=== PATIENT | female | born 1975 | race Two or more races ===

== ENCOUNTER 2022-10-16 17:39 | Emergency (ER) | payer MEDICAID ==
[~2022-10-16] VITALS: Ht 157.5 cm; Wt 110.5 kg
[2022-10-16] MEDS ORDERED: KETOROLAC TROMETHAMINE 30 MG/ML VIAL IM ONE (18:45)
[2022-10-16 22:17] VITALS: BP 135/76; PULSE 74; RESP 16; TEMP 97.3
== END 2022-10-16 22:17 | disposition home or self-care (01) ==
LOC: EMS 17:41
DX: M25.561 Pain in right knee (principal); I10 Essential (primary) hypertension
CPT/HCPCS: 99283; 29505; 73564; 96372; J1885; 29530

== ENCOUNTER 2024-07-07 14:37 | Emergency (ER) | payer MEDICAID ==
[~2024-07-07] VITALS: Ht 157.5 cm; Wt 117.3 kg
[2024-07-07] MEDS ORDERED: BRIV100T PO (14:50)
[2024-07-07] MEDS ORDERED: LACO50TA6 PO (14:50)
[2024-07-07] MEDS ORDERED: LACO200T4 PO (14:50)
[2024-07-07] MEDS ORDERED: LAMO200T32 PO (14:50)
[2024-07-07] MEDS ORDERED: LISI-663 PO (14:51)
[2024-07-07] MEDS ORDERED: IBUP-1493 PO (14:51)
[2024-07-07] MEDS ORDERED: SERT-158 PO (14:51)
[2024-07-07] MEDS ORDERED: LACO100T14 PO (14:51)
[2024-07-07] MEDS: lisinopriL 10 MG TABLET PO ONE (15:14)
[2024-07-07] MEDS: TraMADol HCL 50 MG TABLET PO ONE (15:14)
[2024-07-07 15:42] LABS: BASOPHILS % (AUTO) 0.8 % (0.0-2.0); EOSINOPHILS % (AUTO) 3.5 % (1.0-6.0); HEMATOCRIT 37.3 % (36-46); HEMOGLOBIN 12.4 g/dL (12.0-16.0); LYMPHOCYTES # (AUTO) 2.7 K/uL (1.0-4.8); LYMPHOCYTES % (AUTO) 31.4 % (22.0-44.0); MEAN CORPUSCULAR HEMOGLOBIN 28.3 pg (26.0-34.0); MEAN CORPUSCULAR HGB CONC 33.2 G/dL (31.0-37.0); MEAN CORPUSCULAR VOLUME 85 fL (80-100); MONOCYTES # (AUTO) 0.5 K/uL (0.1-1.0); MONOCYTES % (AUTO) 5.9 % (2.0-9.0); NEUTROPHILS % (AUTO) 58.4 % (40.0-70.0); PLATELET COUNT (AUTO) 379 K/uL (150-450); RED BLOOD CELL COUNT(AUTO) 4.37 MIL/uL (4.00-5.20); RED CELL DISTRIBUTION WIDTH 15.1 % (11.5-14.5); WHITE BLOOD COUNT (AUTO) 8.6 K/uL (4.5-11.0)
[2024-07-07 15:52] LABS: ANION GAP 5 mmol/L (8-16); CALCIUM, TOTAL 8.3 mg/dL (8.8-10.5); CARBON DIOXIDE 29 mmol/L (22-29); CHLORIDE 107 mmol/L (98-107); CREATININE 0.78 mg/dL (0.60-1.30); GLOMERULAR FILTR. RATE CALC > 60 mL/min (>60); GLUCOSE,RANDOM 105 mg/dL (70-110); POTASSIUM 3.7 mmol/L (3.5-5.1); SODIUM SERUM 141 mmol/L (136-145); UREA NITROGEN, BLOOD 20 mg/dL (7-18)
[2024-07-07 16:00] LABS: TROPONIN I-HIGH SENSITIVITY 9 ng/L (<51)
[2024-07-07 16:52] VITALS: BP 156/85; PULSE 79; RESP 16; TEMP 98.1; O2SAT 99
[2024-07-07] MEDS: HYDROCODONE/ACETAMINOPHEN 5-325 MG TABLET PO ONE (17:11)
[2024-07-07] MEDS ORDERED: TRAM50TA5 PO (18:18)
[2024-07-07] MEDS: KETOROLAC TROMETHAMINE 30 MG/ML VIAL IM ONE (18:19)
== END 2024-07-07 18:42 | disposition home or self-care (01) ==
LOC: EMS 14:37
DX: I10 Essential (primary) hypertension (principal); M19.90 Unspecified osteoarthritis, unspecified site; N28.89 Other specified disorders of kidney and ureter; Z79.899 Other long term (current) drug therapy; Z91.148 Patient's other noncompliance with medication regimen for other reason; Z98.890 Other specified postprocedural states
CPT/HCPCS: 99285; 71045; 80048; 83880; 84484; 85025; 36415; 93005; 96372; J1885; 99284